=== PATIENT | female | born 1985 | race Hispanic/Latino ===

== ENCOUNTER 2021-11-11 11:51 | Outpatient (CLI) | payer BC | END 2021-11-11 11:52 | disposition home or self-care (01) | LOC: CSHLAB 11:51 | PROVIDERS: ATTEND Internal Medicine Gastroenterology | DX: Z20.822 Contact with and (suspected) exposure to COVID-19 (principal); Z12.11 Encounter for screening for malignant neoplasm of colon; Z80.0 Family history of malignant neoplasm of digestive organs | CPT/HCPCS: U0003; U0005 ==

== ENCOUNTER → 2021-11-16 | Day surgery (SDC) | payer BC ==
[2021-11-12 13:22] VITALS: BMI 24.5
== END | disposition home or self-care (01) ==
LOC: CSHSDC 10:17
PROVIDERS: ATTEND Internal Medicine Gastroenterology
DX: Z12.11 Encounter for screening for malignant neoplasm of colon (principal); J30.2 Other seasonal allergic rhinitis; E78.5 Hyperlipidemia, unspecified; Z53.9 Procedure and treatment not carried out, unspecified reason; Z80.0 Family history of malignant neoplasm of digestive organs; Z79.899 Other long term (current) drug therapy; Z88.8 Allergy status to other drugs, medicaments and biological substances